=== PATIENT | male | born 2000 | race Caucasian/White ===

== ENCOUNTER 2021-07-06 11:07 | Emergency (ER) | payer OTHER, SELFPAY ==
[2021-07-06 12:06] VITALS: BP 116/79; PULSE 68; RESP 18; TEMP 36.6; O2SAT 98; BMI 26.3
--- NOTE | 2021-07-06 12:21 | ECG_ITS ---
[facility] Test Date: 2021-07-06 Pat Name: Marito Thibodeaux Department: Room: Gender: Male Nurse Behavioral Health Care: : 2000 Requested By: Toñito Holland Order Number: [id number] Naga MD: Jossy Guy M.D. Measurements Intervals [place] Rate: 55 P: 52 NE: 148 QRS: 68 QRSD: 98 T: 49 QT: 398 QTc: 383 Interpretive Statements SINUS BRADYCARDIA EARLY REPOLARIZATION [ST ELEVATION WITH NORMALLY INFLECTED T-WAVE] MODERATE ST DEPRESSION [0.05+ mV ST DEPRESSION] No previous ECG available for comparison Electronically Signed On 07-06-2021 16:04:41 PLEASURE CRAFT SAILOR by Jossy Guy M.D. [email or web address]
--- NOTE | 2021-07-06 12:21 | CT_ITS ---
WS: [id number] CT ABDOMEN AND PELVIS WITH CONTRAST HISTORY: Abdominal pain and hemoptysis. TECHNIQUE: Imaging performed of the abdomen and pelvis with IV contrast. Single phase imaging of the abdomen. Coronal and sagittal reformats are submitted. All CT scans at [facility] use at [address] one of these dose optimization techniques: automated exposure control; mA and/or kV adjustment per patient size (includes targeted exams where dose is matched to clinical indication); or iterative re construction. IV CONTRAST: Omnipaque 300; 95 mL IV. Oral contrast: No DLP: 1710.5 mGy.cm COMPARISON: None available. Lower thorax: Lung bases are clear. Heart is normal size. Very mild thickening of the distal esophagu s. Liver/biliary system: Normal size with no intrahepatic dilatation. Gallbladder: Normal. No gallstones or wall thickening. No pericholecystic fluid. Pancreas: Normal size pancreas and pancreatic duct. No adjacent inflammation. Spleen: Normal size spleen. No mass or infarct. Adrenal glands: Normal. Right kidney: Normal. Left kidney: Moderate cortical thinning and scarring of the upper pole with a dilated calyces. No obs truction or mass identified. Aorta: Normal. No free air. Lymphadenopathy: There are a few small lymph nodes in the RIGHT lower quadrant. No adenopathy. Free fluid: None. GI tract: Very mild fluid distention of small bowel loops in the LEFT abdomen. No obstruction. There is also very mild hyperemia of the proximal small bowel loops. No site of obstruction or mass identif ied. The appendix is normal. Abdominal wall: Unremarkable abdominal wall. No hernia. Pelvis: No free fluid or adenopathy within the pelvis. Bones: Unremarkable. CT/CT abdomen pelvis w con* [id number] IMPRESSION: 1. Mild fluid distention and mild hyperemia of the proximal small bowel loops. No site of obstruction or vascular abnormality identified. Consider gastroente ritis as a possible etiology. There are a few small lymph nodes in the RIGHT lo wer quadrant which can be seen with mesenteric adenitis. 2. Mild thickening of the distal esophagus. Suspect mild esophagitis. Notified Toñito Blanco DO at 07/06/2021 1:11 PM.
--- NOTE | 2021-07-06 12:40 | ED_ITS ---
HPI - Abdominal Pain General: Chief Complaint: Abdominal Pain Stated Complaint: vomiting blood Time Seen by Provider: 07/06/21 12:06 History of Present Illness: HPI narrative: 20-year-old male presents emergency room with left-sided abdominal pain. Reports no episodes of hematemesis prior to arrival. He denies any fever sweats chills. He denies any hematochezia. MD elicited complaint: abdominal pain Pertinent past history: gastrointestinal bleeding Onset (ago): hour(s) Pain Consistency: constant Location: LUQ Severity: severe Quality: stabbing Exacerbating factors: movement Relieving factors: rest Associated Symptoms: Reports anorexia, bloating, GI cramping, dyspepsia, heartburn, hematemesis and poor appetite; Denies belching, change in bowel habits, change in stool character, chills, coffee ground emesis, constipation, diarrhea, dysuria, excessive flatus, fever(s), hematochezia, hematuria, fecal incontinence, loose stools, melena, nausea, syncope and vomiting Review of Systems Const: Denies: fever(s) or chills ENMT: Denies: throat pain, ear or mastoid pain, nasal discharge or nasal congestion Card: Denies: syncope Resp: Denies: dyspnea, productive cough or non-productive cough GI: Reports: hematemesis, heartburn, bloating and GI cramping; Denies: nausea, vomiting, coffee ground emesis, diarrhea, constipation, belching, excessive flatus, fecal incontinence, change in bowel habits, change in stool character, hematochezia or melena : Denies: dysuria or hematuria Skin/Breast: Denies: rash or pruritus PFSH ED PFSH: Medical History (Updated 07/13/21 @ 09:38 by Toñito Blanco DO) Peptic ulcer disease Surgical History (Updated 07/06/21 @ 16:36 by Lul Stoner MD) No significant past surgical history Social History (Updated 07/06/21 @ 16:36 by Lul Stoner MD) Smoking and tobacco status: never smoked Alcohol intake: never Physical Exam Const: COMMON NORMALS: average body habitus, patient oriented x3 and alert GENERAL APPEARANCE: cooperative, comfortable, well kempt and well developed NUTRITIONAL APPEARANCE: obese ORIENTATION/CONSCIOUSNESS: Yes awake, Yes oriented to person and Yes oriented to place HENMT: COMMON NORMALS: normocephalic, atraumatic and EAC's normal HEAD & SCALP: normocephalic and atraumatic EXTERNAL AUDITORY CANAL: EAC's normal Neck/C-Spine: COMMON NORMALS: no meningeal signs Resp: COMMON NORMALS: normal respiratory effort, No retractions, No use of accessory muscles and clear to auscultation bilaterally AUSCULTATION: clear to auscultation bilaterally Cardio: COMMON NORMALS: regular rate and regular rhythm RATE: regular rate RHYTHM: regular rhythm HEART SOUNDS: no murmurs GI: COMMON NORMALS: Normal to inspection, nondistended, normoactive bowel sounds present and No hepatosplenomegaly present PALPATION: Yes Tenderness to palpation present (GI) Details: LLQ and LUQ and Yes No hepatosplenomegaly present : COMMON NORMALS: Yes no CVA tenderness BLADDER/KIDNEY EXAM: Yes no CVA tenderness Back/Pelvis: COMMON NORMALS: no CVA tenderness LUMBAR SPINE/LOWER BACK: Yes normal to inspection Extremity: COMMON NORMALS: no clubbing, cyanosis or edema, no calf tenderness and no pedal edema Neuro: COMMON NORMALS: patient oriented x3 SENSORIUM/ORIENTATION: Yes alert, Yes oriented to person and Yes oriented to place MENINGEAL SIGNS: Yes no meningeal signs Psych: APPEARANCE: Yes well kempt Skin: COMMON NORMALS: no rashes or lesions noted and turgor normal GENERAL SKIN EXAM: no rashes or lesions noted and turgor normal Course Vital Signs: Vital signs: Vital Signs Temperature 97.8 F 07/06/21 12:06 Pulse Rate 70 07/06/21 13:10 Respiratory Rate 16 07/06/21 14:44 Blood Pressure 122/79 07/06/21 13:10 Pulse Oximetry 94 07/06/21 14:44 MDM - Abdominal Pain MDM Narrative: Medical decision making narrative: No further episodes of hematemesis. Consult hospitalist and surgery for EGD.Patient reported significant hematemesis. Discussed with hospitalist and surgery for observation and possible EGD. Lab Data: Labs: Lab Results 07/06/21 07/06/21 07/06/21 12:43 12:43 12:43 WBC 7.3 10^3/uL 10^3/ uL (4.0-10.0) RBC 5.64 10^6/uL H 10 ^6/uL (4.1-5.3) Hgb 17.0 g/dL H g/dL (11.7-16.6) Hct 48.9 % % (42.0-52.0) MCV 86.7 fl fl (80-94) MCH 30.1 pg pg (28.0-34.0) MCHC 34.8 g/dL g/dL (30.0-36.0) RDW 13.1 % % (12.1-15.1) Plt Count 209 10^3/cmm 10^3 /cmm (130-400) MPV 10.8 fL H fL (7.4-10.4) Neut % (Auto) 60.6 % % Lymph % (Auto) 27.8 % % [place] % (Auto) 8.0 % % Eos % (Auto) 2.9 % % Baso % (Auto) 0.4 % % Neut # (Auto) 4.41 10^3/uL 10^3 /uL (1.8-7.7) Lymph # (Auto) 2.0 10^3/uL 10^3/ uL (0.8-4.8) [place] # (Auto) 0.6 10^3/uL 10^3/ uL (0.2-0.9) Eos # (Auto) 0.2 10^3/uL 10^3/ uL (0.0-0.8) Baso # (Auto) 0.0 10^3/uL 10^3/ uL (0.0-0.1) Nucleated RBC % (a uto) 0 % % Nucleated RBCs # 0.0 /100WBC /100W BC PT 13.90 SECONDS SEC ONDS (12.1-14.9) INR 1.04 (0.8-1.2) APTT 28.6 SECONDS SECO NDS (23.9-36.7) Sodium 138 mmol/L mmol/L (136-145) Potassium 4.1 mmol/L mmol/L (3.5-5.1) Chloride 100 mmol/L mmol/L (98-107) Carbon Dioxide 24 mmol/L mmol/L (22-29) Anion Gap 18.1 (5-19) BUN 9 mg/dL mg/dL (6-20) Creatinine 1.0 mg/dL mg/dL (0.7-1.2) GFR Calculation 93.4 mL/min mL/mi n (90-130) Glucose 87 mg/dL mg/dL (65-115) Calculated Osmolal ity 284 mOsm/kg L mOs m/kg (285-295) Calcium 9.2 mg/dL mg/dL (8.5-10.5) Iron TIBC % Saturation Unsat Iron Binding Total Bilirubin 0.7 mg/dL mg/dL (0.15-1.2) AST 14 U/L U/L (0-40) ALT 19 U/L U/L (0-41) Alkaline Phosphata se 89 IU/L IU/L (40-130) Total Protein 7.0 g/dL g/dL (6.6-8.7) Albumin 4.7 g/dL g/dL (3.5-5.2) Globulin 2.3 g/dL g/dL (1.3-4.6) Lipase TSH Ethyl Alcohol Blood Type Rho(D) Type Antibody Screen 07/06/21 07/06/21 07/06/21 12:43 12:43 12:43 WBC RBC Hgb Hct MCV MCH MCHC RDW Plt Count MPV Neut % (Auto) Lymph % (Auto) [place] % (Auto) Eos % (Auto) Baso % (Auto) Neut # (Auto) Lymph # (Auto) [place] # (Auto) Eos # (Auto) Baso # (Auto) Nucleated RBC % (a uto) Nucleated RBCs # PT INR APTT Sodium Potassium Chloride Carbon Dioxide Anion Gap BUN Creatinine GFR Calculation Glucose Calculated Osmolal ity Calcium Iron 123 ug/dL ug/dL (59-158) TIBC 263 mcg/dl mcg/dl % Saturation 46.7 % % (20-50) Unsat Iron Binding 140 ug/dL ug/dL (112-347) Total Bilirubin AST ALT Alkaline Phosphata se Total Protein Albumin Globulin Lipase 16 U/L U/L (13-60) TSH 1.07 uIU/mL uIU/m L (0.27-4.20) Ethyl Alcohol < 10 mg/dL mg/dL (0-10) Blood Type O Positive Rho(D) Type Positive Antibody Screen Negative Discharge Plan Discharge Patient Disposition: Placed in Observation Clinical Impression: Hematemesis, Ileus, Mesenteric lymphadenitis Coding Level of Care Code ED Speech And Hearing Director for Chg Fwd Exam Comprehensive
[2021-07-06 12:47] VITALS: RESP 22
[2021-07-06] MEDS: morphine 4 mg/mL SDV 1 mL IVP ×3 (12:47→13:38)
[2021-07-06] MEDS: pantoprazole 40 mg SDV 80 MG IVP (12:47)
[2021-07-06] MEDS: ondansetron 2 mg/ML SDV 2 mL 4 MG IVP (12:47)
[2021-07-06] MEDS: iohexol 300 mg/mL 100 mL Btl IV (12:51)
[2021-07-06 12:55] LABS: Basophils % 0.4 %; Eosinophils # 0.2 10^3/uL (0.0-0.8); Eosinophils % 2.9 %; Hematocrit 48.9 % (42.0-52.0); Lymphocytes % 27.8 %; Mean Corpuscular HGB Conc 34.8 g/dL (30.0-36.0); Mean Corpuscular Hemoglobin 30.1 pg (28.0-34.0); Mean Corpuscular Volume 86.7 fl (80-94); Mean Platelet Volume 10.8 fL (7.4-10.4); Monocytes # 0.6 10^3/uL (0.2-0.9); Neutrophils # 4.41 10^3/uL (1.8-7.7); Neutrophils % 60.6 %; Nucleated Red Blood Cells % 0 %; Platelet Count 209 10^3/cmm (130-400); Red Blood Count 5.64 10^6/uL (4.1-5.3); Red Cell Distribution Width 13.1 % (12.1-15.1); White Blood Count 7.3 10^3/uL (4.0-10.0)
[2021-07-06 13:05] LABS: INR 1.04 (0.8-1.2)
[2021-07-06 13:06] VITALS: RESP 18; O2SAT 98
[2021-07-06 13:07] LABS: Partial Thromboplastin Time 28.6 SECONDS (23.9-36.7)
[2021-07-06] MEDS: sodium chloride 0.9% 1,000 ML 999 ML IV ×2 (13:07→13:08)
[2021-07-06 13:10] VITALS: BP 122/79; PULSE 70; RESP 16; O2SAT 98
[2021-07-06 13:23] LABS: Alanine Aminotransferase 19 U/L (0-41); Albumin Level 4.7 g/dL (3.5-5.2); Alkaline Phosphatase 89 IU/L (40-130); Anion Gap 18.1 (5-19); Aspartate Amino Transferase 14 U/L (0-40); Blood Urea Nitrogen 9 mg/dL (6-20); Calcium 9.2 mg/dL (8.5-10.5); Carbon Dioxide 24 mmol/L (22-29); Chloride 100 mmol/L (98-107); Globulin 2.3 g/dL (1.3-4.6); Glomerular Filtration Rate 93.4 mL/min (90-130); Glucose 87 mg/dL (65-115); Osmolality Calculated 284 mOsm/kg (285-295); Potassium 4.1 mmol/L (3.5-5.1); Sodium 138 mmol/L (136-145); Total Bilirubin 0.7 mg/dL (0.15-1.2)
[2021-07-06 13:38] VITALS: RESP 16; O2SAT 97
[2021-07-06 14:19] LABS: Lipase 16 U/L (13-60)
[2021-07-06 14:44] VITALS: RESP 16; O2SAT 94
[2021-07-06] MEDS: fentaNYL 50 mcg/mL INJ 2mL IVP (14:44)
--- NOTE | 2021-07-06 16:05 | P.HP_ITS ---
Providers/Chief Complaint Chief Complaint: ABD PAIN, BLOOD IN URINE History of Present Illness Marito Thibodeaux is a 20 year old male Medications/Allergies Home Medications Medication Instructions Recorded Confirmed Last Taken Type ondansetron 4 mg PO DAILY PRN 07/06/21 07/06/21 07/06/21 06:00 History pantoprazole 40 mg PO DAILY 07/06/21 07/06/21 07/06/21 06:00 History Allergies Allergy/AdvReac Type Severity Reaction Status Date / Time acetaminophen [From Tylenol] Allergy Unknown Verified 07/06/21 12:24 Vitals/I&O/Wt Last Vital Signs Temp 97.8 F 07/06/21 12:06 Pulse 70 07/06/21 13:10 Resp 16 07/06/21 14:44 BP 122/79 07/06/21 13:10 Pulse Ox 94 07/06/21 14:44 07/06/21 07/06/21 07/06/21 06:59 14:59 22:59 Intake Total 1999 Balance 1999 Weight last 48 hrs Weight 85.729 kg Data : 07/06/21 12:43 07/06/21 12:43 Other Labs: Laboratory Results WBC 7.3 10^3/uL (4.0-10.0) 07/06/21 12:43 RBC 5.64 10^6/uL (4.1-5.3) H 07/06/21 12:43 Hgb 17.0 g/dL (11.7-16.6) H 07/06/21 12:43 Hct 48.9 % (42.0-52.0) 07/06/21 12:43 MCV 86.7 fl (80-94) 07/06/21 12:43 MCH 30.1 pg (28.0-34.0) 07/06/21 12:43 MCHC 34.8 g/dL (30.0-36.0) 07/06/21 12:43 RDW 13.1 % (12.1-15.1) 07/06/21 12:43 Plt Count 209 10^3/cmm (130-400) 07/06/21 12:43 MPV 10.8 fL (7.4-10.4) H 07/06/21 12:43 Neut % (Auto) 60.6 % 07/06/21 12:43 Lymph % (Auto) 27.8 % 07/06/21 12:43 [place] % (Auto) 8.0 % 07/06/21 12:43 Eos % (Auto) 2.9 % 07/06/21 12:43 Baso % (Auto) 0.4 % 07/06/21 12:43 Neut # (Auto) 4.41 10^3/uL (1.8-7.7) 07/06/21 12:43 Lymph # (Auto) 2.0 10^3/uL (0.8-4.8) 07/06/21 12:43 [place] # (Auto) 0.6 10^3/uL (0.2-0.9) 07/06/21 12:43 Eos # (Auto) 0.2 10^3/uL (0.0-0.8) 07/06/21 12:43 Baso # (Auto) 0.0 10^3/uL (0.0-0.1) 07/06/21 12:43 Nucleated RBC % (auto) 0 % 07/06/21 12:43 Nucleated RBCs # 0.0 /100WBC 07/06/21 12:43 PT 13.90 SECONDS (12.1-14.9) 07/06/21 12:43 INR 1.04 (0.8-1.2) 07/06/21 12:43 APTT 28.6 SECONDS (23.9-36.7) 07/06/21 12:43 Sodium 138 mmol/L (136-145) 07/06/21 12:43 Potassium 4.1 mmol/L (3.5-5.1) 07/06/21 12:43 Chloride 100 mmol/L (98-107) 07/06/21 12:43 Carbon Dioxide 24 mmol/L (22-29) 07/06/21 12:43 Anion Gap 18.1 (5-19) 07/06/21 12:43 BUN 9 mg/dL (6-20) 07/06/21 12:43 Creatinine 1.0 mg/dL (0.7-1.2) 07/06/21 12:43 GFR Calculation 93.4 mL/min (90-130) 07/06/21 12:43 Glucose 87 mg/dL (65-115) 07/06/21 12:43 Calculated Osmolality 284 mOsm/kg (285-295) L 07/06/21 12:43 Calcium 9.2 mg/dL (8.5-10.5) 07/06/21 12:43 Total Bilirubin 0.7 mg/dL (0.15-1.2) 07/06/21 12:43 AST 14 U/L (0-40) 07/06/21 12:43 ALT 19 U/L (0-41) 07/06/21 12:43 Alkaline Phosphatase 89 IU/L (40-130) 07/06/21 12:43 Total Protein 7.0 g/dL (6.6-8.7) 07/06/21 12:43 Albumin 4.7 g/dL (3.5-5.2) 07/06/21 12:43 Globulin 2.3 g/dL (1.3-4.6) 07/06/21 12:43 Lipase 16 U/L (13-60) 07/06/21 12:43 Blood Type O Positive 07/06/21 12:43 Rho(D) Type Positive 07/06/21 12:43 Antibody Screen Negative 07/06/21 12:43 Impressions Abdomen/Pelvis CT 07/06/21 12:21 IMPRESSION: 1. Mild fluid distention and mild hyperemia of the proximal small bowel loops. No site of obstruction or vascular abnormality identified. Consider gastroenteritis as a possible etiology. There are a few small lymph nodes in the RIGHT lower quadrant which can be seen with mesenteric adenitis. 2. Mild thickening of the distal esophagus. Suspect mild esophagitis. Notified Toñito Blanco DO at 07/06/2021 1:11 PM. Coding Level of Care Code Acute Loop Sewer for Chg Ashley
--- NOTE | 2021-07-06 16:30 | PM.CONSULT ---
Providers/Reason For Consult Consulting Physician/Specialty*: General Surgery Lul Stoner MD Reason for Consult*: Hematemesis. Requesting Physician: Toñito Blanco (ER) History of Present Illness History of Present Illness Marito Thibodeaux is a 20 year old male who started vomiting some blood yesterday. He says he continued to vomit some blood today and it was a significant amount. He tells me he has had hematemesis several times a week over the past 3 months. This has been associated with abdominal pain, as well, which she continues to have today. He had an EGD in [place] in February and it revealed 6 ulcers. It sounds like they led him to believe they were going to do a couple follow-ups with him, but he never received any phone calls. He has been on Protonix ever since the EGD until he ran out a week ago. He tells me that he was taking Protonix 3 times a day under the direction of his physician in [place]. He thinks now it may have been increasing his abdominal pain. He more recently has been taking a different medication once a day, but I think it probably is Carafate or something similar. He denies any [id number]-bin-[id number] antacid use. He denies regular NSAID use, significant caffeine intake (he drinks 1 caffeinated beverage a day), alcohol or tobacco product use, etc. He has no family history of upper or lower GI problems. The patient came to the emergency room today and a CAT scan revealed some possible thickening of the distal esophagus but no intra-abdominal problems otherwise. Review of Systems Const: Denies: fever(s) GI: Reports: abdominal pain, nausea, vomiting, hematemesis and heartburn Meds/Allergies Home Medications and Allergies Home Medications Medication Instructions Recorded Confirmed Last Taken Type ondansetron 4 mg PO DAILY PRN 07/06/21 07/06/21 07/06/21 06:00 History pantoprazole 40 mg PO DAILY 07/06/21 07/06/21 07/06/21 06:00 History Allergies Allergy/AdvReac Type Severity Reaction Status Date / Time acetaminophen [From Tylenol] Allergy Unknown Verified 07/06/21 12:24 PFSH Acute PFSH: Medical History (Updated 07/06/21 @ 16:36 by Lul Stoner MD) Peptic ulcer disease Surgical History (Updated 07/06/21 @ 16:36 by Lul Stoner MD) No significant past surgical history Social History (Updated 07/06/21 @ 16:36 by Lul Stoner MD) Smoking and tobacco status: never smoked Alcohol intake: never Substance/Drug Use: never Vitals/I&O/Wt Last Vital Signs Temp 97.8 F 07/06/21 12:06 Pulse 70 07/06/21 13:10 Resp 16 07/06/21 14:44 BP 122/79 07/06/21 13:10 Pulse Ox 94 07/06/21 14:44 07/06/21 07/06/21 07/06/21 06:59 14:59 22:59 Intake Total 1999 Balance 1999 Weight last 48 hrs Weight 189 lb Physical Exam Narrative: EXAM NARRATIVE: The patient was encountered in his room in the emergency department in the presence of Dr. Santillan from the hospitalist service. The patient does not appear to be in any acute distress. The abdomen reveals significant tenderness, however, in the epigastrium and the left lower quadrant (the patient says this is not new). No masses are palpated. Data Imaging^: CT Abd/Pel: Radiologist's impression: CT abdomen/pelvis 07/06/2021 IMPRESSION: 1. Mild fluid distention and mild hyperemia of the proximal small bowel loops. No site of obstruction or vascular abnormality identified. Consider gastroenteritis as a possible etiology. There are a few small lymph nodes in the RIGHT lower quadrant which can be seen with mesenteric adenitis. 2. Mild thickening of the distal esophagus. Suspect mild esophagitis. A&P Assessment and plan (1) Hematemesis: The patient was found to have several ulcerations in his stomach several months ago when he had endoscopy by Dr. Russell of gastroenterology in [place]. It sounds like follow-up may have fallen through, but the patient says he has been taking Protonix daily ever since then and is still having issues. I have to assume that he was checked for Helicobacter at that time. I told him that I could repeat an EGD at this time but I am not sure it is going to tell us anything new. He would prefer to get set up with a clip loading machine adjuster in [place] and indicated they would work towards that goal through his primary care physician. He indicated he was interested in trying to go home today, but was instructed to return if he has worsening or new problems. Status: Acute Consult Attestations Medical Necessity Statement: See hospitalist service's notation. At the end of our interview the patient indicated that he was wanting to go home today. Coding Level of Care Code Acute Towel Sorter for Elaine Ramirez Diagnoses Hematemesis K92.0
[2021-07-06 16:39] LABS: Alcohol Level < 10 mg/dL (0-10); Iron 123 ug/dL (59-158); Percent Saturation 46.7 % (20-50); Thyroid Stimulating Hormone 1.07 uIU/mL (0.27-4.20); Total Iron Binding Capacity 263 mcg/dl; Unsaturated Iron Binding 140 ug/dL (112-347)
--- NOTE | 2021-07-06 16:46 | P.CONIM_ITS ---
Providers/Reason For Consult Consulting Physician/Specialty*: Internal medicine Reason for Consult*: Abdominal pain, possible GI bleed, possible admission Requesting Physician: Dr. Calle Attending Physician: Dr. Barclay/Dr. Stoner History of Present Illness History of Present Illness Marito Thibodeaux is a 20 year old male with past medical history of peptic ulcer disease, hematemesis which has been going on for last 3 months for which he follows up with gastroenterology for next year with EGD next 3 months which he was found to have 6 ulcers out of which one was cauterized. Patient recently moved to [place]. He usually has hematemesis once every 3 weeks. He has been having symptoms again since yesterday evening. Today while he was at work he started having hematemesis again along with dizziness and one episode of blacking out so he presented to the ER. Patient has been having acute abdominal pain ongoing for last 3 months. As per him he was diagnosed of peptic ulcer disease and placed on Protonix 3 times a day along with the medication with possible bismuth once a day. Patient today seen in the ER with Dr. Stoner at bedside. Patient states last episode of vomiting was around 2 hours ago. Denies any nausea, vomiting, dizziness currently. Current vitals are pulse of 70, blood pressure of 122/80, saturating well on room air. He states his abdominal pain is the same which has been going on for last 3 months. He is not aware of diagnosis of H. pylori. He denies any use of chronic marijuana, smoking, alcohol use, states he is usually on full liquid diet. Take 1 caffeinated drink a day and Mountain Dew. Denies any recreational drugs. Blood work in the ER showed a white of 7.3, hemoglobin of 17, INR 1.04, sodium 138, creatinine of 1, iron 123, TIBC of 263, AST/ALT of 14/19,-phosphatase of 89, TSH of 1.07, alcohol level of less than [address] abdomen pelvis done as below. Review of Systems General: Reports: 10 or more systems reviewed and unremarkable except in HPI and below Const: Denies: fever(s), chills, body aches, change in appetite, change in weight, malaise, night sweats, diaphoresis, change in sleep pattern, daytime sleepiness or snoring Eyes: Denies: change in vision, blurry vision, photophobia, eye discomfort or eye discharge ENMT: Denies: throat pain, enlarged tonsils, hoarseness, mouth pain, oral sores, dry mouth, tinnitus, nasal congestion or post nasal drip Card: Denies: chest pain, palpitations, irregular heart rhythm, edema, swelling of feet/ankles, lightheadedness, syncope, pre-syncope, dyspnea on exertion, orthopnea, leg pain with exertion or acrocyanosis Resp: Denies: dyspnea, productive cough, non-productive cough, wheezing, stridor, pain on inspiration, change in phlegm color, hemoptysis or chest congestion GI: Denies: abdominal pain, nausea, vomiting, hematemesis, coffee ground emesis, dysphagia, heartburn, diarrhea, constipation, bloating, GI cramping, change in bowel habits, pain on defecation, hematochezia or melena : Denies: flank pain, difficulty urinating, dysuria, urinary frequency, urinary urgency, urinary hesitancy, urinary dribbling, difficulty starting urination, change in urine stream, nocturia or hematuria Musc: Denies: neck pain, back pain, extremity pain, joint pain, joint swelling, joint redness, joint stiffness or limited range of motion Neuro: Denies: headache(s), numbness in extremities, weakness in extremities, sensory changes, lack of coordination, difficulty walking, frequent falls, dizziness, vertigo, confusion, Slurred speech present, difficulty communicating thoughts or seizure-like activity Psych: Denies: anxiety, depression, mood swings, panic attacks, hopelessness or irritability Endo: Denies: polyuria, polydipsia, tired all the time, cold intolerance, excessive sweating, flushing or heat intolerance Willy/Lymph: Denies: easy bruising or easy bleeding All/Imm: Denies: tongue swelling, facial swelling or acute wheezing Meds/Allergies Home Medications and Allergies Home Medications Medication Instructions Recorded Confirmed Last Taken Type ondansetron 4 mg PO DAILY PRN 07/06/21 07/06/21 07/06/21 06:00 History pantoprazole 40 mg PO DAILY 07/06/21 07/06/21 07/06/21 06:00 History Allergies Allergy/AdvReac Type Severity Reaction Status Date / Time acetaminophen [From Tylenol] Allergy Unknown Verified 07/06/21 12:24 PFSH Acute PFSH: Medical History (Updated 07/06/21 @ 16:51 by Prosper Barclay MD) Peptic ulcer disease Surgical History (Updated 07/06/21 @ 16:36 by Lul Stoner MD) No significant past surgical history Social History (Updated 07/06/21 @ 16:36 by Lul Stoner MD) Smoking and tobacco status: never smoked Alcohol intake: never Substance/Drug Use: never Vitals/I&O/Wt Last Vital Signs Temp 97.8 F 07/06/21 12:06 Pulse 70 07/06/21 13:10 Resp 16 07/06/21 14:44 BP 122/79 07/06/21 13:10 Pulse Ox 94 07/06/21 14:44 07/06/21 07/06/21 07/06/21 06:59 14:59 22:59 Intake Total 1999 Balance 1999 Weight last 48 hrs Weight 85.729 kg Physical Exam Narrative: EXAM NARRATIVE: EXAM NARRATIVE: General: No acute distress, AO x3, on room air HEENT: PERRLA, pupils bilaterally equal and reactive Chest: No respiratory breath sounds bilaterally, good equal air entry bilaterally CVS: S1-S2 regular, no murmurs, no tachycardia, no gallops, no rubs Abdomen: Soft, mild generalized tenderness present all over the abdomen, no organomegaly, bowel sounds present, sent Neuro: No focal deficits, no facial deformity, AO x3, power 5/5 in all limbs Data Labs: Other Labs: Laboratory Results WBC 7.3 10^3/uL (4.0- 10.0) 07/06/21 12:43 RBC 5.64 10^6/uL (4.1 -5.3) H 07/06/21 12:43 Hgb 17.0 g/dL (11.7-1 6.6) H 07/06/21 12:43 Hct 48.9 % (42.0-52.0 ) 07/06/21 12:43 MCV 86.7 fl (80-94) 07/06/21 12:43 MCH 30.1 pg (28.0-34. 0) 07/06/21 12:43 MCHC 34.8 g/dL (30.0-3 6.0) 07/06/21 12:43 RDW 13.1 % (12.1-15.1 ) 07/06/21 12:43 Plt Count 209 10^3/cmm (130 -400) 07/06/21 12:43 MPV 10.8 fL (7.4-10.4 ) H 07/06/21 12:43 Neut % (Auto) 60.6 % 07/06/21 12:43 Lymph % (Auto) 27.8 % 07/06/21 12:43 Daggett % (Auto) 8.0 % 07/06/21 12:43 Eos % (Auto) 2.9 % 07/06/21 12:43 Baso % (Auto) 0.4 % 07/06/21 12:43 Neut # (Auto) 4.41 10^3/uL (1.8 -7.7) 07/06/21 12:43 Lymph # (Auto) 2.0 10^3/uL (0.8- 4.8) 07/06/21 12:43 Daggett # (Auto) 0.6 10^3/uL (0.2- 0.9) 07/06/21 12:43 Eos # (Auto) 0.2 10^3/uL (0.0- 0.8) 07/06/21 12:43 Baso # (Auto) 0.0 10^3/uL (0.0- 0.1) 07/06/21 12:43 Nucleated RBC % (a uto) 0 % 07/06/21 12:43 Nucleated RBCs # 0.0 /100WBC 07/06/21 12:43 PT 13.90 SECONDS (12 .1-14.9) 07/06/21 12:43 INR 1.04 (0.8-1.2) 07/06/21 12:43 APTT 28.6 SECONDS (23. 9-36.7) 07/06/21 12:43 Sodium 138 mmol/L (136-1 45) 07/06/21 12:43 Potassium 4.1 mmol/L (3.5-5 .1) 07/06/21 12:43 Chloride 100 mmol/L (98-10 7) 07/06/21 12:43 Carbon Dioxide 24 mmol/L (22-29) 07/06/21 12:43 Anion Gap 18.1 (5-19) 07/06/21 12:43 BUN 9 mg/dL (6-20) 07/06/21 12:43 Creatinine 1.0 mg/dL (0.7-1. 2) 07/06/21 12:43 GFR Calculation 93.4 mL/min (90-1 30) 07/06/21 12:43 Glucose 87 mg/dL (65-115) 07/06/21 12:43 Calculated Osmolal ity 284 mOsm/kg (285- 295) L 07/06/21 12:43 Calcium 9.2 mg/dL (8.5-10 .5) 07/06/21 12:43 Iron 123 ug/dL (59-158 ) 07/06/21 12:43 TIBC 263 mcg/dl 07/06/21 12:43 % Saturation 46.7 % (20-50) 07/06/21 12:43 Unsat Iron Binding 140 ug/dL (112-34 7) 07/06/21 12:43 Total Bilirubin 0.7 mg/dL (0.15-1 .2) 07/06/21 12:43 AST 14 U/L (0-40) 07/06/21 12:43 ALT 19 U/L (0-41) 07/06/21 12:43 Alkaline Phosphata se 89 IU/L (40-130) 07/06/21 12:43 Total Protein 7.0 g/dL (6.6-8.7 ) 07/06/21 12:43 Albumin 4.7 g/dL (3.5-5.2 ) 07/06/21 12:43 Globulin 2.3 g/dL (1.3-4.6 ) 07/06/21 12:43 Lipase 16 U/L (13-60) 07/06/21 12:43 TSH 1.07 uIU/mL (0.27 -4.20) 07/06/21 12:43 Ethyl Alcohol < 10 mg/dL (0-10) 07/06/21 12:43 Blood Type O Positive 07/06/21 12:43 Rho(D) Type Positive 07/06/21 12:43 Antibody Screen Negative 07/06/21 12:43 Impressions Abdomen/Pelvis CT 07/06/21 12:21 IMPRESSION: 1. Mild fluid distention and mild hyperemia of the proximal small bowel loops. No site of obstruction or vascular abnormality identified. Consider gastroenteritis as a possible etiology. There are a few small lymph nodes in the RIGHT lower quadrant which can be seen with mesenteric adenitis. 2. Mild thickening of the distal esophagus. Suspect mild esophagitis. Notified Toñito Blanco DO at 07/06/2021 1:11 PM. A&P Assessment and plan (1) Hematemesis: Status: Acute (2) Peptic ulcer disease: Status: Acute Additional A&P Information Case discussed with patient and Dr. Stoner at bedside. Repeat EGD was discussed with the patient along with need of follow-up with [employer] consultant in [place] given young age, recurrent symptoms even though he is on max treatment. Patient is interested in trying to go home. Case discussed with Dr. He is agreeable. Patient requesting refills for Protonix. He last took Protonix a week ago. Patient denies any dizziness currently. Orthostatic negative. We will plan to discharge patient home from ER. We discussed the need of follow-up with [employer] consultant as soon as possible for further work-up and possibly repeat EGD as an outpatient to rule out gastrinoma. We also discussed in detail for presentation back to the ER if he has worsening symptoms, episode of dizziness, recurrent hematemesis or unable to take oral intake. Consult Attestations Medical Necessity Statement: Patient can be discharged home I discussed in detail with Dr. Stoner and patient and patient's family at bedside. Time Spent in Patient Care: Greater than 35 minutes (>than 50% of time spent in counselling and/or direct pt care on unit) . Coding Level of Care Code Acute Direct Customer Service Representative for [facility] Diagnoses Hematemesis K92.0 Peptic ulcer disease K27.9
== END 2021-07-06 17:28 | disposition still patient (30) ==
PROVIDERS: Student in an Organized Health Care Education/Training Program; Emergency Provider Family Medicine
DX: K92.0 Hematemesis (principal); I88.0 Nonspecific mesenteric lymphadenitis
CPT/HCPCS: 74177; 80053; 80307; 83540; 83550; 83690; 84443; 85025; 85610; 85730; 86850; 86900; 93005; 96361; 96374; 96375; 96376; 99284; C9113; J2270; J2405; J3010; J7030; Q9967

== ENCOUNTER 2022-01-01 17:12 | Emergency (ER) | payer OTHER, SELFPAY ==
[2022-01-01] VITALS (14 sets, daily range): BP systolic 116–154; BP diastolic 75–117; PULSE 60–83; RESP 12–18; O2SAT 91–99; BMI 26.3
--- NOTE | 2022-01-01 17:15 | XRR_ITS ---
PROCEDURE INFORMATION: Exam: XR Chest Exam date and time: 01/01/2022 5:57 PM Age: 21 years old Clinical indication: Other: Hemoptysis; Additional info: Hemoptysosis TECHNIQUE: Imaging protocol: XR of the chest. Views: 1 view. COMPARISON: CT abdomen pelvis w con* [id number] 07/06/2021 12:46 PM FINDINGS: Lungs: Unremarkable. No consolidation. Pleural spaces: Unremarkable. No pleural effusion. No pneumothorax. Heart/Mediastinum: Unremarkable. No cardiomegaly. Bones/joints: Unremarkable. XR/XR chest 1V portable [id number] IMPRESSION: No acute findings.
--- NOTE | 2022-01-01 17:49 | CTR_ITS ---
PROCEDURE INFORMATION: Exam: CT Abdomen And Pelvis Without Contrast Exam date and time: 01/01/2022 6:22 PM Age: 21 years old Clinical indication: Pain and condition or disease; Spleen condition; Other: Duodenal ulcers; Abdominal pain; Additional info: Abdominal pain- vomiting blood TECHNIQUE: Imaging protocol: Computed tomography of the abdomen and pelvis without contrast. Radiation optimization: All CT scans at this facility use at least one of these dose optimization techniques: automated exposure control; mA and/or kV adjustment per patient size (includes targeted exams where dose is matched to clinical indication); or iterative reconstruction. COMPARISON: CT abdomen pelvis w con* [id number] 07/06/2021 12:46 PM RADIATION DOSE METRICS: Total DLP (mGy-cm): 1938.17 FINDINGS: Diaphragm: Small hiatal hernia. Liver: Normal. No mass. Gallbladder and bile ducts: Normal. No calcified stones. No ductal dilation. Pancreas: Normal. No ductal dilation. Spleen: Normal. No splenomegaly. Adrenal glands: Normal. No mass. Kidneys and ureters: Normal. No hydronephrosis. Stomach and bowel: Unremarkable. No obstruction. No mucosal thickening. Appendix: No evidence of appendicitis. Intraperitoneal space: Unremarkable. No free air. No significant fluid collection. Vasculature: Unremarkable. No abdominal aortic aneurysm. Lymph nodes: Unremarkable. No enlarged lymph nodes. Urinary bladder: Unremarkable as visualized. Reproductive: Unremarkable as visualized. Bones/joints: Unremarkable. No acute fracture. Soft tissues: Unremarkable. CT/CT abdomen pelvis wo con [id number] IMPRESSION: Negative for acute inflammatory process in the abdomen or pelvis
--- NOTE | 2022-01-01 17:49 | ECG_ITS ---
[facility] Test Date: 2022-01-01 Pat Name: Marito Thibodeaux Department: Room: Gender: Male Animal Husbandry Technician: : 2000 Requested By: Toñito Holland Order Number: [id number] Naga MD: Aj Ha M.D. Measurements Intervals Jarrell Rate: 76 P: 43 NM: 141 QRS: 49 QRSD: 97 T: 17 QT: 374 QTc: 422 Interpretive Statements SINUS RHYTHM WITH SINUS ARRHYTHMIA Compared to ECG 07/06/2021 13:02:49 Sinus bradycardia no longer present Early repolarization no longer present ST (T wave) deviation no longer present Electronically Signed On 01-01-2022 21:57:08 CDT by Aj Ha M.D. [id number]
[2022-01-01 17:50] LABS: Basophils # 0.1 10^3/uL (0.0-0.1); Basophils % 0.5 %; Eosinophils # 0.6 10^3/uL (0.0-0.8); Eosinophils % 5.8 %; Hematocrit 47.7 % (42.0-52.0); Hemoglobin 17.1 g/dL (11.7-16.6); Lymphocytes # 2.9 10^3/uL (0.8-4.8); Lymphocytes % 30.1 %; Mean Corpuscular HGB Conc 35.8 g/dL (30.0-36.0); Mean Corpuscular Hemoglobin 30.3 pg (28.0-34.0); Mean Corpuscular Volume 84.6 fl (80-94); Mean Platelet Volume 11.2 fL (7.4-10.4); Monocytes # 0.8 10^3/uL (0.2-0.9); Monocytes % 8.5 %; Neutrophils # 5.24 10^3/uL (1.8-7.7); Neutrophils % 54.8 %; Nucleated Red Blood Cells % 0 %; Platelet Count 223 10^3/cmm (130-400); Red Blood Count 5.64 10^6/uL (4.1-5.3); Red Cell Distribution Width 12.5 % (12.1-15.1); White Blood Count 9.6 10^3/uL (4.0-10.0)
--- NOTE | 2022-01-01 17:50 | ED_ITS ---
Documented by User: Toñito Blanco DO 01/01/22 17:59 HPI - Abdominal Pain General: Chief Complaint: Nausea/Vomiting/Diarrhea Stated Complaint: Throwing up blood Time Seen by Provider: 01/01/22 17:35 Source: patient Mode of arrival: ambulatory Limitations: no limitations History of Present Illness: 21-year-old male presents emergency room with acute periumbilical abdominal pain that began this afternoon he said some moderate hematemesis. He has had several EGDs in the past and has had bleeding ulcers in the past has not required any surgical repair. He is currently taking Protonix for which she has been taking regularly has not missed any doses. No dysuria urgency or frequency no chest pain or shortness of breath. He is not on any anticoagulants no other medications. MD elicited complaint: abdominal pain Pertinent past history: other (Gastroesophageal reflux) Onset (ago): hour(s) Pain Consistency: constant Location: Periumbilical Severity: severe Quality: cramping Exacerbating factors: eating and vomiting Relieving factors: nothing Associated Symptoms: Reports bloating, GI cramping, dyspepsia, hematemesis, nausea and vomiting; Denies anorexia, belching, change in bowel habits, change in stool character, chills, coffee ground emesis, constipation, diarrhea, dysuria, excessive flatus, fever(s), heartburn, hematochezia, hematuria, fecal incontinence, loose stools, melena, poor appetite and syncope Review of Systems Const: Denies: fever(s) or chills ENMT: Denies: throat pain, ear or mastoid pain, nasal discharge or nasal congestion Card: Denies: syncope Resp: Denies: dyspnea, productive cough or non-productive cough GI: Reports: nausea, vomiting, hematemesis, bloating and GI cramping; Denies: coffee ground emesis, heartburn, diarrhea, constipation, belching, excessive flatus, fecal incontinence, change in bowel habits, change in stool character, hematochezia or melena : Denies: dysuria or hematuria Skin/Breast: Denies: rash or pruritus PFS ED PFSH: Medical History Peptic ulcer disease Surgical History No significant past surgical history Social History Smoking and tobacco status: never smoked Alcohol intake: never Physical Exam Const: COMMON NORMALS: no acute distress GENERAL APPEARANCE: cooperative and comfortable ORIENTATION/CONSCIOUSNESS: Yes awake, Yes oriented to person, Yes oriented to place and Yes oriented to time HENMT: COMMON NORMALS: normocephalic, atraumatic and hearing grossly normal bilaterally HEAD & SCALP: normocephalic and atraumatic Neck/C-Spine: COMMON NORMALS: no JVD Resp: COMMON NORMALS: normal respiratory effort, No retractions, No use of accessory muscles and clear to auscultation bilaterally AUSCULTATION: clear to auscultation bilaterally Cardio: COMMON NORMALS: no JVD, regular rate, regular rhythm and No murmurs present (Cardio) RATE: regular rate RHYTHM: regular rhythm GI: COMMON NORMALS: No hepatosplenomegaly present AUSCULTATION: Yes normoactive bowel sounds PALPATION: Yes Tenderness to palpation present (GI), Yes Guarding due to palpation present (GI) and Yes No hepatosplenomegaly present Extremity: COMMON NORMALS: normal to inspection, capillary refill normal, no clubbing, cyanosis or edema, no calf tenderness and no pedal edema Neuro: SENSORIUM/ORIENTATION: Yes oriented to person, Yes oriented to place and Yes oriented to time Skin: COMMON NORMALS: no rashes or lesions noted GENERAL SKIN EXAM: no rashes or lesions noted Course Vital Signs: Vital signs: Vital Signs Pulse Rate 83 01/02/22 01:29 Respiratory Rate 18 01/02/22 01:29 Blood Pressure 133/94 01/02/22 01:29 Pulse Oximetry 97 01/02/22 01:29 MDM - Abdominal Pain Medical Decision Making Acute abdomen on exam. Antiemetics pain medications given as well as PPI. CT ordered Care signed out to Dr. Parks change of shift. See final notes for diagnosis and disposition. Lab Data : 01/01/22 17:40 01/01/22 17:40 Labs/Radiology: Radiology Impressions Chest X-Ray 01/01/22 17:15 IMPRESSION: No acute findings. Abdomen/Pelvis CT 01/01/22 17:49 IMPRESSION: Negative for acute inflammatory process in the abdomen or pelvis Chest/Abdomen/Pelvis CT 01/01/22 22:50 IMPRESSION: No acute findings. IMPRESSION: 1. Very minimal edema may be present inferior to the pancreas, perhaps reflecting a mild pancreatitis in the appropriate clinical setting. 2. Small to moderate hiatal hernia. Laboratory Results WBC 9.6 10^3/uL (4.0-10.0) 01/01/22 17:40 RBC 5.64 10^6/uL (4.1-5.3) H 01/01/22 17:40 Hgb 17.1 g/dL (11.7-16.6) H 01/01/22 17:40 Hct 47.7 % (42.0-52.0) 01/01/22 17:40 MCV 84.6 fl (80-94) 01/01/22 17:40 MCH 30.3 pg (28.0-34.0) 01/01/22 17:40 MCHC 35.8 g/dL (30.0-36.0) 01/01/22 17:40 RDW 12.5 % (12.1-15.1) 01/01/22 17:40 Plt Count 223 10^3/cmm (130-400) 01/01/22 17:40 MPV 11.2 fL (7.4-10.4) H 01/01/22 17:40 Neut % (Auto) 54.8 % 01/01/22 17:40 Lymph % (Auto) 30.1 % 01/01/22 17:40 [place] % (Auto) 8.5 % 01/01/22 17:40 Eos % (Auto) 5.8 % 01/01/22 17:40 Baso % (Auto) 0.5 % 01/01/22 17:40 Neut # (Auto) 5.24 10^3/uL (1.8-7.7) 01/01/22 17:40 Lymph # (Auto) 2.9 10^3/uL (0.8-4.8) 01/01/22 17:40 [place] # (Auto) 0.8 10^3/uL (0.2-0.9) 01/01/22 17:40 Eos # (Auto) 0.6 10^3/uL (0.0-0.8) 01/01/22 17:40 Baso # (Auto) 0.1 10^3/uL (0.0-0.1) 01/01/22 17:40 Nucleated RBC % (auto) 0 % 01/01/22 17:40 Nucleated RBCs # 0.0 /100WBC 01/01/22 17:40 PT 13.80 SECONDS (12.1-14.9) 01/01/22 19:35 INR 1.03 (0.8-1.2) 01/01/22 19:35 D-Dimer <= 0.27 ug/mIFEU (0-0.59) 01/01/22 19:35 Sodium 138 mmol/L (136-145) 01/01/22 17:40 Potassium 3.9 mmol/L (3.5-5.1) 01/01/22 17:40 Chloride 97 mmol/L (98-107) L 01/01/22 17:40 Carbon Dioxide 29 mmol/L (22-29) 01/01/22 17:40 Anion Gap 15.9 (5-19) 01/01/22 17:40 BUN 17 mg/dL (6-20) 01/01/22 17:40 Creatinine 1.0 mg/dL (0.7-1.2) 01/01/22 17:40 GFR Calculation 92.6 mL/min (90-130) 01/01/22 17:40 Glucose 89 mg/dL (65-115) 01/01/22 17:40 Calculated Osmolality 287 mOsm/kg (285-295) 01/01/22 17:40 Lactic Acid 0.7 mmol/L (0.5-2.2) 01/01/22 22:06 Calcium 10.0 mg/dL (8.5-10.5) 01/01/22 17:40 Lipase 19 U/L (13-60) 01/01/22 17:40 Urine Color Yellow (Yellow) 01/01/22 21:00 Urine Appearance Clear (CLEAR) 01/01/22 21:00 Urine pH 8 (5-7) H 01/01/22 21:00 Ur Specific [place] 1.010 (1.005-1.030) 01/01/22 21:00 Urine Protein Neg (Negative) 01/01/22 21:00 Urine Glucose (UA) Norm (Normal) 01/01/22 21:00 Urine Ketones Negative (Negative) 01/01/22 21:00 Urine Blood Neg (Negative) 01/01/22 21:00 Urine Nitrate Negative (Negative) 01/01/22 21:00 Urine Bilirubin Neg (Negative) 01/01/22 21:00 Prot Sulfosalicylic Acd Negative (Negative) 01/01/22 21:00 Urine Urobilinogen Norm mg/dL (Negative) 01/01/22 21:00 Ur Leukocyte Esterase Negative (Negative) 01/01/22 21:00 Discharge Plan Discharge Patient Disposition: Home Clinical Impression: Abdominal pain, Hematemesis, Dehydration, Pancreatitis Condition: Stable Prescriptions: New ondansetron 4 mg tablet,disintegrating 4 mg PO Q8H PRN (Reason: nausea and vomiting) Qty: 15 0RF oxycodone 5 mg tablet 5 mg PO Q4H PRN (Reason: pain) Qty: 14 0RF No Action pantoprazole 40 mg tablet,delayed release (DR/EC) 40 mg PO BIDWMEAL 30 Days Qty: 60 0RF Discharge Orders: Discharge ED (Routine); Ordered 01/02/22 Ordered By: Jensen Henderson Discharge Diet: Clear Liquid Discharge Activity: Increase activity as tolerated Patient Instructions: Pancreatitis (ED), Abdominal Pain (ED), Hematemesis (ED), Opioid Safety Activity Restrictions/Additional Instructions: Thank you for visiting the emergency department. You were seen and evaluated for abdominal pain and throwing up blood. The exact cause of your symptoms unclear. You do perhaps mild pancreatitis and this is likely exacerbation of your underlying peptic ulcer disease. Please follow-up with gastroenterology and your primary care provider. I will message case management for follow-up with GI. You will be given a prescription for nausea medication and pain medication. I recommend clear liquids for the next 2 days followed by slow introduction of nonfatty foods. Return to the emergency department for uncontrolled pain, inability tolerate p.o. intake, lightheadedness, dizziness, recurrent episodes of blood in vomit, or anything else that you are concerned about a feel needs emergency department evaluation. Sign Out Sign Out Data: Patient Sign Out occurred on 01/01/22 at 18:04. Patient's care was discussed, and care was transferred from to Jensen Henderson MD. Coding Level of Care Code ED Quote Clerk for Chg Fwd Exam Comprehensive Documented by User: Jensen Henderson MD 01/06/22 03:36 HPI - Abdominal Pain General: Chief Complaint: Nausea/Vomiting/Diarrhea Stated Complaint: Throwing up blood Time Seen by Provider: 01/01/22 17:35 PFS ED PFSH: Medical History Peptic ulcer disease Surgical History No significant past surgical history Social History Smoking and tobacco status: never smoked Alcohol intake: never Course Vital Signs: Vital signs: Vital Signs Pulse Rate 83 01/02/22 01:29 Respiratory Rate 18 01/02/22 01:29 Blood Pressure 133/94 01/02/22 01:29 Pulse Oximetry 97 01/02/22 01:29 MDM - Abdominal Pain Medical Decision Making Acute abdomen on exam. Antiemetics pain medications given as well as PPI. CT ordered Care signed out to Dr. Parks change of shift. See final notes for diagnosis and disposition. Patient care handoff received from Dr. Blanco pending completion of ED evaluation and reassessment. Laboratory studies notable for no leukocytosis, hemoglobin similar to baseline. D-dimer negative and INR normal. Metabolic panel without acute derangement, BUN normal. Urinalysis not concerning for urinary tract infection. Initial CT scan without acute pathology to explain patient's symptoms. Despite multiple rounds of medications including escalating opiate use the patient continued to have rather severe pain that was almost immediate return. Therefore additional imaging felt to be warranted. CT study notable for perhaps mild pancreatitis which she conjugation with physical exam findings is a reasonable explanation for patient's abdominal pain. Pain was able to be controlled and nausea controlled. Patient tolerated p.o. intake. He was offered admission given the difficulty controlling pain in the emergency department however he prefers trial at home with strict return precautions. I discussed prescriptions, follow-up plan, return precautions. Patient verbalized understanding and felt safe for discharge. Jensen Henderson MD Emergency Medicine Lab Data : 01/01/22 17:40 01/01/22 17:40 Labs/Radiology: Radiology Impressions Chest X-Ray 01/01/22 17:15 IMPRESSION: No acute findings. Abdomen/Pelvis CT 01/01/22 17:49 IMPRESSION: Negative for acute inflammatory process in the abdomen or pelvis Chest/Abdomen/Pelvis CT 01/01/22 22:50 IMPRESSION: No acute findings. IMPRESSION: 1. Very minimal edema may be present inferior to the pancreas, perhaps reflecting a mild pancreatitis in the appropriate clinical setting. 2. Small to moderate hiatal hernia. Laboratory Results WBC 9.6 10^3/uL (4.0-10.0) 01/01/22 17:40 RBC 5.64 10^6/uL (4.1-5.3) H 01/01/22 17:40 Hgb 17.1 g/dL (11.7-16.6) H 01/01/22 17:40 Hct 47.7 % (42.0-52.0) 01/01/22 17:40 MCV 84.6 fl (80-94) 01/01/22 17:40 MCH 30.3 pg (28.0-34.0) 01/01/22 17:40 MCHC 35.8 g/dL (30.0-36.0) 01/01/22 17:40 RDW 12.5 % (12.1-15.1) 01/01/22 17:40 Plt Count 223 10^3/cmm (130-400) 01/01/22 17:40 MPV 11.2 fL (7.4-10.4) H 01/01/22 17:40 Neut % (Auto) 54.8 % 01/01/22 17:40 Lymph % (Auto) 30.1 % 01/01/22 17:40 [place] % (Auto) 8.5 % 01/01/22 17:40 Eos % (Auto) 5.8 % 01/01/22 17:40 Baso % (Auto) 0.5 % 01/01/22 17:40 Neut # (Auto) 5.24 10^3/uL (1.8-7.7) 01/01/22 17:40 Lymph # (Auto) 2.9 10^3/uL (0.8-4.8) 01/01/22 17:40 [place] # (Auto) 0.8 10^3/uL (0.2-0.9) 01/01/22 17:40 Eos # (Auto) 0.6 10^3/uL (0.0-0.8) 01/01/22 17:40 Baso # (Auto) 0.1 10^3/uL (0.0-0.1) 01/01/22 17:40 Nucleated RBC % (auto) 0 % 01/01/22 17:40 Nucleated RBCs # 0.0 /100WBC 01/01/22 17:40 PT 13.80 SECONDS (12.1-14.9) 01/01/22 19:35 INR 1.03 (0.8-1.2) 01/01/22 19:35 D-Dimer <= 0.27 ug/mIFEU (0-0.59) 01/01/22 19:35 Sodium 138 mmol/L (136-145) 01/01/22 17:40 Potassium 3.9 mmol/L (3.5-5.1) 01/01/22 17:40 Chloride 97 mmol/L (98-107) L 01/01/22 17:40 Carbon Dioxide 29 mmol/L (22-29) 01/01/22 17:40 Anion Gap 15.9 (5-19) 01/01/22 17:40 BUN 17 mg/dL (6-20) 01/01/22 17:40 Creatinine 1.0 mg/dL (0.7-1.2) 01/01/22 17:40 GFR Calculation 92.6 mL/min (90-130) 01/01/22 17:40 Glucose 89 mg/dL (65-115) 01/01/22 17:40 Calculated Osmolality 287 mOsm/kg (285-295) 01/01/22 17:40 Lactic Acid 0.7 mmol/L (0.5-2.2) 01/01/22 22:06 Calcium 10.0 mg/dL (8.5-10.5) 01/01/22 17:40 Lipase 19 U/L (13-60) 01/01/22 17:40 Urine Color Yellow (Yellow) 01/01/22 21:00 Urine Appearance Clear (CLEAR) 01/01/22 21:00 Urine pH 8 (5-7) H 01/01/22 21:00 Ur Specific [place] 1.010 (1.005-1.030) 01/01/22 21:00 Urine Protein Neg (Negative) 01/01/22 21:00 Urine Glucose (UA) Norm (Normal) 01/01/22 21:00 Urine Ketones Negative (Negative) 01/01/22 21:00 Urine Blood Neg (Negative) 01/01/22 21:00 Urine Nitrate Negative (Negative) 01/01/22 21:00 Urine Bilirubin Neg (Negative) 01/01/22 21:00 Prot Sulfosalicylic Acd Negative (Negative) 01/01/22 21:00 Urine Urobilinogen Norm mg/dL (Negative) 01/01/22 21:00 Ur Leukocyte Esterase Negative (Negative) 01/01/22 21:00 Discharge Plan Discharge Patient Disposition: Home Clinical Impression: Abdominal pain, Hematemesis, Dehydration, Pancreatitis Condition: Stable Prescriptions: New ondansetron 4 mg tablet,disintegrating 4 mg PO Q8H PRN (Reason: nausea and vomiting) Qty: 15 0RF oxycodone 5 mg tablet 5 mg PO Q4H PRN (Reason: pain) Qty: 14 0RF No Action pantoprazole 40 mg tablet,delayed release (DR/EC) 40 mg PO BIDWMEAL 30 Days Qty: 60 0RF Discharge Orders: Discharge ED (Routine); Ordered 01/02/22 Ordered By: Jensen Henderson Discharge Diet: Clear Liquid Discharge Activity: Increase activity as tolerated Patient Instructions: Pancreatitis (ED), Abdominal Pain (ED), Hematemesis (ED), Opioid Safety Activity Restrictions/Additional Instructions: Thank you for visiting the emergency department. You were seen and evaluated for abdominal pain and throwing up blood. The exact cause of your symptoms unclear. You do perhaps mild pancreatitis and this is likely exacerbation of your underlying peptic ulcer disease. Please follow-up with gastroenterology and your primary care provider. I will message case management for follow-up with GI. You will be given a prescription for nausea medication and pain medication. I recommend clear liquids for the next 2 days followed by slow introduction of nonfatty foods. Return to the emergency department for uncontrolled pain, inability tolerate p.o. intake, lightheadedness, dizziness, recurrent episodes of blood in vomit, or anything else that you are concerned about a feel needs emergency department evaluation. Sign Out Sign Out Data: Patient Sign Out occurred on 01/01/22 at 18:04. Patient's care was discussed, and care was transferred from to Jensen Henderson MD. Coding Level of Care Code ED Quote Clerk for [place] Fwd Exam Comprehensive
[2022-01-01 18:26] LABS: Blood Urea Nitrogen 17 mg/dL (6-20); Carbon Dioxide 29 mmol/L (22-29); Chloride 97 mmol/L (98-107); Glomerular Filtration Rate 92.6 mL/min (90-130); Glucose 89 mg/dL (65-115); Osmolality Calculated 287 mOsm/kg (285-295); Sodium 138 mmol/L (136-145)
[2022-01-01 18:30] LABS: Anion Gap 15.9 (5-19); Potassium 3.9 mmol/L (3.5-5.1)
[2022-01-01] MEDS: lactated ringers 1,000 ML 999 ML IV ×2 (18:38→22:25)
[2022-01-01] MEDS: morphine 4 mg/mL SDV 1 mL IVP (18:38)
[2022-01-01] MEDS: ondansetron 2 mg/ML SDV 2 mL 4 MG IVP (18:40)
[2022-01-01] MEDS: pantoprazole 40 mg SDV 80 MG IVP (18:42)
--- NOTE | 2022-01-01 19:02 | PC.NURSE ---
Called lab, stated they will send someone to draw the blue top.
--- NOTE | 2022-01-01 19:21 | PC.NURSE ---
Patient requesting more pain medications, medications were given approximately 20 minutes ago.
[2022-01-01 19:52] LABS: INR 1.03 (0.8-1.2)
[2022-01-01 19:55] LABS: D Dimer <= 0.27 ug/mIFEU (0-0.59)
[2022-01-01] MEDS: HYDROmorphone 1 mg/mL INJ 1 mL 0.5 MG IVP ×2 (20:08→22:24)
[2022-01-01] MEDS: lidocaine 2% viscous 15 ML, aluminum-mag hydrox-simethicon 30 ML, sucralfate oral liq 1 GM PO (20:08)
[2022-01-01 21:11] LABS: Add Urine Microscopic? NO; Charge for UA Resulting for Rev
[2022-01-01 21:17] LABS: Bilirubin Urine Neg (Negative); Blood Urine Neg (Negative); Glucose Urine UA Norm (Normal); Ketones Urine Negative (Negative); Leukocyte Esterase Urine Negative (Negative); Nitrate Urine Negative (Negative); Protein Urine Neg (Negative); Sulfosalicylic Acid Urine Negative (Negative); Urine Appearance Clear (CLEAR); Urine Color Yellow (Yellow); Urobilinogen Urine Norm (Negative); pH Urine 8 (5-7)
[2022-01-01 21:20] LABS: Lipase 19 U/L (13-60)
[2022-01-01 22:27] LABS: Lactic Sepsis W/Reflex 0.7 mmol/L (0.5-2.2)
--- NOTE | 2022-01-01 22:50 | CTR_ITS ---
PROCEDURE INFORMATION: Exam: CT Chest With Contrast; Diagnostic Exam date and time: 01/01/2022 11:10 PM Age: 21 years old Clinical indication: Vomiting; Abdominal pain; Patient HX: Epigastric pain with hematemesis. History of peptic ulcers. ; Additional info: Severe epigastric and abd pain refractory to treatment TECHNIQUE: Imaging protocol: Diagnostic computed tomography of the chest with contrast. Radiation optimization: All CT scans at this facility use at least one of these dose optimization techniques: automated exposure control; mA and/or kV adjustment per patient size (includes targeted exams where dose is matched to clinical indication); or iterative reconstruction. Contrast material: OMNI 300; Contrast volume: 50 ml; Contrast route: INTRAVENOUS (IV); COMPARISON: CR (CHEST, ) 01/01/2022 5:57 PM RADIATION DOSE METRICS: Total DLP (mGy-cm): 1556.02 FINDINGS: Lungs: Unremarkable. No consolidation. No masses. Pleural spaces: Unremarkable. No pneumothorax. No pleural effusion. Heart: Unremarkable. No cardiomegaly. No pericardial effusion. Lymph nodes: Unremarkable. No enlarged lymph nodes. Vasculature: Unremarkable. No aortic aneurysm. Bones/joints: Unremarkable. No acute fracture. Soft tissues: Unremarkable. PROCEDURE INFORMATION: Exam: CT Abdomen And Pelvis With Contrast Exam date and time: 01/01/2022 11:10 PM Age: 21 years old Clinical indication: Vomiting; Abdominal pain; Patient HX: Epigastric pain with hematemesis. History of peptic ulcers. ; Additional info: Severe epigastric and abd pain refractory to treatment TECHNIQUE: Imaging protocol: Computed tomography of the abdomen and pelvis with contrast. Radiation optimization: All CT scans at this facility use at least one of these dose optimization techniques: automated exposure control; mA and/or kV adjustment per patient size (includes targeted exams where dose is matched to clinical indication); or iterative reconstruction. Contrast material: OMNI 300; Contrast volume: 50 ml; Contrast route: INTRAVENOUS (IV); COMPARISON: CT abdomen pelvis wo con [id number] 01/01/2022 6:22 PM RADIATION DOSE METRICS: Total DLP (mGy-cm): 1556.02 FINDINGS: Diaphragm: Small to moderate hiatal hernia. Liver: Normal. No mass. Gallbladder and bile ducts: Normal. No calcified stones. No ductal dilation. Pancreas: Very minimal edema may be present inferior to the pancreas, perhaps reflecting a mild pancreatitis in the appropriate clinical setting. Spleen: Normal. No splenomegaly. Adrenal glands: Normal. No mass. Kidneys and ureters: Normal. No hydronephrosis. Stomach and bowel: Unremarkable. No obstruction. No mucosal thickening. Appendix: No evidence of appendicitis. Intraperitoneal space: Unremarkable. No free air. No significant fluid collection. Vasculature: Unremarkable. No abdominal aortic aneurysm. Lymph nodes: Unremarkable. No enlarged lymph nodes. Urinary bladder: Unremarkable as visualized. Reproductive: Unremarkable as visualized. Bones/joints: Unremarkable. No acute fracture. Soft tissues: Unremarkable. CT/CT chest abd pel w con* IMPRESSION: No acute findings. IMPRESSION: 1. Very minimal edema may be present inferior to the pancreas, perhaps reflecting a mild pancreatitis in the appropriate clinical setting. 2. Small to moderate hiatal hernia.
[2022-01-01] MEDS: iohexol 300 mg/mL 100 mL Btl IV (23:09)
[2022-01-01] MEDS: HYDROmorphone 1 mg/mL INJ 1 mL IVP (23:59)
[2022-01-02] VITALS: BP 125/78; PULSE 66; RESP 18; O2SAT 96
[2022-01-02] MEDS: ondansetron 2 mg/ML SDV 2 mL 4 MG IVP (00:55)
[2022-01-02 01:00] VITALS: BP 105/87; PULSE 72; RESP 18; O2SAT 96
[2022-01-02 01:29] VITALS: BP 133/94; PULSE 83; RESP 18; O2SAT 97
--- NOTE | 2022-01-02 14:00 | DCPLANNER ---
Addendum entered by Jaymie Sánchez 01/10/22 16:16: Patient had a follow up appointment scheduled for 01.03.22 at [facility] - patient did not attend appointment. Original Note: manager machine had message to schedule a follow up appointment for patient with Dr. Conrad. manager machine sent patients information to the front office staff at internal medicine. Patients information will be printed and reviewed. Clinic will call patient with appointment information.
== END 2022-01-02 01:29 | disposition home or self-care (01) ==
PROVIDERS: Emergency Medicine; Emergency Provider Emergency Medicine
DX: K85.90 Acute pancreatitis without necrosis or infection, unspecified (principal); E86.0 Dehydration; K92.0 Hematemesis
CPT/HCPCS: 71045; 71260; 74176; 74177; 80048; 81003; 83605; 83690; 85025; 85378; 85610; 93005; 96361; 96374; 96375; 96376; 99285; C9113; J1170; J2270; J2405; Q9967

== ENCOUNTER 2023-02-22 13:11 | Emergency (ER) | payer OTHER, SELFPAY ==
[2023-02-22 13:13] VITALS: BP 134/83; PULSE 83; RESP 15; TEMP 36.7; O2SAT 99; BMI 28.5
[2023-02-22 13:54] VITALS: BP 125/86; PULSE 89; RESP 18; O2SAT 99
--- NOTE | 2023-02-22 14:03 | W.ED.DENTAL ---
HPI - Dental/Oral General: Chief complaint: Dental/Oral Stated complaint: rt sinus pressure/gum/pain Time Seen by Provider: 02/22/23 13:38 History of Present Illness: Patient is a 22-year-old male comes to the ED with dental pain. Dental pain has been going on now for couple weeks. Pain is located in right upper molars. Within the last 24 hours the pain got worse and he started noticing some swelling in the right right maxillary region and swelling of gums around right upper molars. He rates his pain currently an 8 out of 10. Denies any other symptoms. Patient has an appointment with a dentist scheduled in about 4 weeks. Associated symptoms: Denies fever(s) or odynophagia Review of Systems Const: Denies: fever(s), chills or fatigue Eyes: Denies: change in vision or eye discomfort ENMT: Reports: dental pain; Denies: throat pain, odynophagia, nasal discharge or nasal congestion Card: Denies: chest pain, palpitations, edema, swelling of feet/ankles, dyspnea on exertion or orthopnea Resp: Denies: dyspnea, productive cough or non-productive cough GI: Denies: abdominal pain, nausea, vomiting, diarrhea, constipation or hematochezia : Denies: flank pain, difficulty urinating, dysuria or hematuria Musc: Denies: neck pain, back pain or extremity swelling Skin/Breast: Denies: rash or new lesions Neuro: Denies: headache(s), numbness in extremities or weakness in extremities PFS ED PFSH: Medical History Peptic ulcer disease Surgical History No significant past surgical history Social History Smoking and tobacco status: never smoked Alcohol intake: never Substance/Drug Use: never Physical Exam Const: COMMON NORMALS: no acute distress, patient oriented x3, healthy appearing and alert GENERAL APPEARANCE: cooperative and comfortable HENMT: COMMON NORMALS: normocephalic HEAD & SCALP: normocephalic MOUTH: Normal oral and palatal mucosa present TEETH & GINGIVA: Yes abnormal tooth and associated gingiva upper right second molar tender and with associated gingival edema THROAT: posterior oropharynx normal and uvula midline Neck/C-Spine: COMMON NORMALS: supple GENERAL: Yes normal visual inspection Resp: COMMON NORMALS: normal respiratory effort, No retractions, No use of accessory muscles and clear to auscultation bilaterally AUSCULTATION: clear to auscultation bilaterally Cardio: COMMON NORMALS: regular rate, regular rhythm, S1 normal heart sound present, S2 normal heart sound present, No gallops present (Cardio), No clicks present (Cardio), No murmurs present (Cardio) and Peripheral pulses 2+ throughout RATE: regular rate RHYTHM: regular rhythm HEART SOUNDS: S1 normal heart sound present and S2 normal heart sound present PERIPHERAL PULSES: Peripheral pulses 2+ throughout GI: COMMON NORMALS: Normal to inspection, nondistended, normoactive bowel sounds present, Soft to palpation, non-tender and no masses PALPATION: Yes Soft to palpation : COMMON NORMALS: Yes no CVA tenderness BLADDER/KIDNEY EXAM: Yes no CVA tenderness Back/Pelvis: COMMON NORMALS: no CVA tenderness Extremity: COMMON NORMALS: normal to inspection Neuro: COMMON NORMALS: patient oriented x3 SENSORIUM/ORIENTATION: Yes alert GAIT: Yes Normal gait present Skin: GENERAL SKIN EXAM: dry skin Course Vital Signs: Vital signs: Vital Signs Temperature 98.0 F 02/22/23 13:13 Pulse Rate 88 02/22/23 14:23 Respiratory Rate 21 H 02/22/23 14:23 Blood Pressure 128/85 02/22/23 14:23 Pulse Oximetry 98 02/22/23 14:23 Oxygen Delivery Me thod Room Air 02/22/23 14:22 MDM - Dental/Oral Medical Decision Making Patient is a 22-year-old male comes to the ED with dental pain. Dental pain has been going on now for couple weeks. Pain is located in right upper molars. Within the last 24 hours the pain got worse and he started noticing some swelling in the right right maxillary region and swelling of gums around right upper molars. He rates his pain currently an 8 out of 10. Denies any other symptoms. Patient has an appointment with a dentist scheduled in about 4 weeks. Vitals are stable. Patient appears nontoxic in no acute distress or pain. He has some tenderness of right upper second molar with surrounding gingival erythema and edema. Rest of exam is benign. Patient was given a dose of pain med here in the ED. Patient was diagnosed with a dental infection and was stable for discharge home. He was sent home with a prescription for clindamycin, viscous lidocaine and ibuprofen 800 mg. Told to follow-up with his dentist at his scheduled appointment in the next coming weeks. Return to ED precautions given. Patient understood and agreed with plan. Discharge Plan Discharge Patient Disposition: Home Clinical Impression: Dental infection Condition: Stable Prescriptions: New clindamycin HCl 150 mg capsule 300 mg PO Q6H 7 Days Qty: 56 0RF Lidocaine Viscous 2 % solution 5 ml mucous membrane TID PRN (Reason: pain) Qty: 100 0RF ibuprofen 800 mg tablet 800 mg PO Q8H PRN (Reason: pain) Qty: 30 0RF No Action pantoprazole 40 mg tablet,delayed release (DR/EC) 40 mg PO BIDWMEAL 30 Days Qty: 60 0RF ondansetron 4 mg tablet,disintegrating 4 mg PO Q8H PRN (Reason: nausea and vomiting) Qty: 15 0RF oxycodone 5 mg tablet 5 mg PO Q4H PRN (Reason: pain) Qty: 14 0RF Discharge Orders: Discharge ED (Routine); Ordered 02/22/23 Ordered By: Antoni Loomis Referrals: Antoni Jenkins MD [Primary Care Provider] - Discharge Diet: Regular Discharge Activity: Resume usual activity Activity Restrictions/Additional Instructions: Follow-up with dentist at your scheduled appointment for further treatment of dental infection. Take medications as prescribed. Return to the ER or your medical provider if condition worsens. Please read and understand discharge instructions. Thank you for choosing [facility] for your healthcare needs today. Please realize this is an emergency room and that we are providing you with a medical screening exam and this may not be complete and all inclusive of all the testing and or work up that you may need to determine your ailment or severity of your illness. It is very important that you follow up as instructed or that you return to the Emergency Department should you have concerns or if your condition changes or worsens in any way. Coding Level of Care Code ED Content Specialist for Elaine Ramirez
[2023-02-22 14:07] VITALS: RESP 19; O2SAT 98
[2023-02-22] MEDS: oxyCODONE 5 mg IR Tab/Cap PO (14:07)
[2023-02-22 14:22] VITALS: BP 128/85; PULSE 88; RESP 21; O2SAT 98
[2023-02-22 14:23] VITALS: BP 128/85; PULSE 88; RESP 21; O2SAT 98
== END 2023-02-22 14:25 | disposition home or self-care (01) ==
PROVIDERS: Emergency Provider Physician Assistant; PCP Family Medicine
DX: K04.7 Periapical abscess without sinus (principal)
CPT/HCPCS: 99283

== ENCOUNTER 2024-05-27 11:37 | Emergency (ER) | payer OTHER, SELFPAY ==
[2024-05-27 12:12] VITALS: BP 131/96; PULSE 83; RESP 17; TEMP 36.7; O2SAT 97; BMI 29.7
--- NOTE | 2024-05-27 14:39 | CT_ITS ---
WS: [id number] CT THORACIC SPINE TECHNIQUE: Noncontrast CT of the thoracic spine with coronal and sagittal reformatted images. CLINICAL INFORMATION: trauma, distal numbness COMPARISON: None. DLP: 855.[address] scans at [facility] use at least one of these dose optimization techniques: automated e xposure control; mA and/or kV adjustment per patient size (includes targeted exams where dose is matc hed to clinical indication); or iterative reconstruction. FINDINGS: Mild thoracic curve. Mild thoracic kyphosis. No acute appearing compression fractures. Normal paraver tebral soft tissues. Moderate esophageal hiatal hernia. Adrenal glands are normal. Enlarged paraesophageal and prominent u pper abdominal lymph nodes likely reactive in a patient this age. Partially visualized patchy infiltr ates in the RIGHT middle lobe compatible with pneumonia. CT/CT thoracic spin wo con* [id number] IMPRESSION: 1. No acute thoracic spine findings. 2. Partially visualized patchy filtrates in the RIGHT middle lobe compatible w ith pneumonia. Consider aspiration pneumonia. 3. Moderate esophageal hiatal hernia with air-fluid level.
--- NOTE | 2024-05-27 14:39 | CT_ITS ---
WS: [id number] CT LUMBAR SPINE TECHNIQUE: Noncontrast CT of the lumbar spine with coronal and sagittal reformatted images. CLINICAL INFORMATION: trauma/distal numbness COMPARISON: None. DLP: 816.[address] scans at [facility] use at least one of these dose optimization techniques: automated e xposure control; mA and/or kV adjustment per patient size (includes targeted exams where dose is matc hed to clinical indication); or iterative reconstruction. FINDINGS: Mild lumbar curve. No acute compression. No high-grade central canal stenosis. L1-L2: Normal. L2-L3: Normal. L3-L4: Minimal annular bulging. Mild facet arthropathy. L4-L5: Mild annular bulging. Mild facet arthropathy. Spinal canal and foramen are patent. L5-S1: Tiny central disc protrusion. Spinal canal and foramen are patent. Mild facet arthropathy. Visualized pelvic bony structures: Normal. Paravertebral soft tissues: Normal. Adrenal glands are normal. CT/CT lumbar spine wo con* [id number] IMPRESSION: No acute lumbar spine findings.
--- NOTE | 2024-05-27 14:40 | ED_ITS ---
HPI - Back Pain/Injury General: Chief Complaint: Back Pain/Injury Stated Complaint: back injury, whole body hurts Time Seen by Provider: 05/27/24 13:19 Source: patient Mode of arrival: wheelchair Limitations: no limitations History of Present Illness: Patient is a 23-year-old male presenting to the emergency department due to mid and lower back pain onset at 0830 this morning. Patient works at a [employer], where he reports he bent over and a large wooden board toppled over and struck him directly on the low back. States that he has had severe pain since, and also is having numbness in both his legs. This is a Worker's Comp. situation. He is ambulatory into the emergency department, is placed in a wheelchair for comfort. Denies any previous history of injuries to the back. Primarily pain i s to the midline spinous process, not so much to the parathoracic or paralumbar muscles. He is denying any bowel or bladder incontinence, and though he has numbness to his extremities he has remained ambulatory. He has not taken anything for pain at this point. No other injuries noted with the incident, no chest pain, no shortness of breath, no other concerning symptoms. Of note, he notes that pain is worse with sitting that is standing at this time. MD elicited complaint: back pain and back injury Pertinent past history: recent trauma Onset (ago): hour(s) Timing: constant Severity: severe Similar Symptoms Previously: No Quality: sharp Location: lumbar spine and thoracic spine Exacerbating factors: sitting upright Context: trauma Associated symptoms: Deny abdominal pain, chills, fecal incontinence, fever(s), nausea or vomiting Related Data Previous Rx's Medication Instructions Recorded pantoprazole 40 mg tablet,delayed 40 mg PO BIDWMEAL 30 days #60 tabs 07/06/21 release ondansetron 4 mg disintegrating 4 mg PO Q8H PRN nausea and 01/02/22 tablet vomiting #15 tabs oxycodone 5 mg tablet 5 mg PO Q4H PRN pain #14 tabs 01/02/22 ibuprofen 800 mg tablet 800 mg PO Q8H PRN pain #30 tabs 02/22/23 lidocaine HCl 2 % mucosal solution 5 ml mucous membrane TID PRN pain 02/22/23 (Lidocaine Viscous) #100 mL azithromycin 500 mg tablet 500 mg PO DAILY 5 days #5 tabs 05/27/24 methocarbamol 750 mg tablet 750 mg PO Q8H 5 days #15 tabs 05/27/24 prednisone 20 mg tablet 60 mg (3 x 20 mg) PO ONCE 5 days 05/27/24 #15 tabs Allergies Allergy/AdvReac Type Severity Reaction Status Date / Time acetaminophen [From Tylenol] Allergy Unknown Verified 05/27/24 10:23 Review of Systems General: Reports: 10 or more systems reviewed and unremarkable except in HPI and below Const: Denies: fever(s) or chills Card: Denies: chest pain Resp: Denies: dyspnea or productive cough GI: Denies: abdominal pain, nausea, vomiting, diarrhea or fecal incontinence : Denies: flank pain or urinary incontinence Musc: Reports: back pain and limited range of motion; Denies: neck pain, extremity pain, extremity swelling, joint pain, joint swelling, joint redness, joint warmth or muscle weakness Skin/Breast: Denies: rash Neuro: Reports: numbness in extremities; Denies: headache(s) or weakness in extremities PFSH ED PFSH: Medical History Peptic ulcer disease Surgical History No significant past surgical history Social History Smoking and tobacco/nicotine status: never used tobacco/nicotine Alcohol intake: never Substance/Drug Use: never Physical Exam Const: COMMON NORMALS: no acute distress, patient oriented x3, no limitations, healthy appearing, alert and well nourished OTHER: Patient appears well in no acute distress, though upon movement he does wince in pain HENMT: COMMON NORMALS: normocephalic and atraumatic HEAD & SCALP: normocephalic and atraumatic Neck/C-Spine: COMMON NORMALS: full ROM, supple and no meningeal signs Resp: COMMON NORMALS: normal respiratory effort, No use of accessory muscles and clear to auscultation bilaterally AUSCULTATION: clear to auscultation bilaterally Cardio: COMMON NORMALS: regular rate and regular rhythm RATE: regular rate RHYTHM: regular rhythm Back/Pelvis: OTHER: Reproducible tenderness to light palpation of the thoracic and lumbar spine. No step-off deformity, there is an abrasion noted to the right parathoracic and paralumbar muscles indicating a recent trauma, however no bruising. He has pain with all range of motion, though does appear to be worse with flexion and extension at the low back. Limited range of motion with lateral rotation. Extremity: COMMON NORMALS: normal to inspection, full ROM, capillary refill normal, no joint enlargement and no clubbing, cyanosis or edema Neuro: COMMON NORMALS: patient oriented x3, moves all extremities, no focal motor deficits, no sensory deficits noted and deep tendon reflexes 2+ bilaterally SENSORIUM/ORIENTATION: Yes alert MENINGEAL SIGNS: Yes no meningeal signs Skin: COMMON NORMALS: no rashes or lesions noted GENERAL SKIN EXAM: no rashes or lesions noted Course Vital Signs: Vital signs: Vital Signs Temperature 98.1 F 05/27/24 12:12 Pulse Rate 78 05/27/24 15:04 Respiratory Rate 16 05/27/24 15:04 Blood Pressure 132/78 05/27/24 15:04 Pulse Oximetry 95 05/27/24 15:04 Oxygen Delivery Me thod Room Air 05/27/24 15:04 MDM - Back Pain/Injury Medical Decision Making Patient had injury at work where a large piece of wood struck him in the back, this was Worker's Comp. situation in which she is handling this and paperwork filled out appropriately. Due to the numbness in his lower extremities I did CT his thoracic and lumbar back which were both normal. Incidentally thoracic spine CT did show right lower lobe consolidation concerning for a pneumonia. Patient had no complaints of respiratory distress, fevers, and states he did not feel sick although he does avidly use a vape and also has a child who has been sick recently. A chest x-ray obtained did confirm this that there was right middle lobe pneumonia of undetermined etiology, potentially an aspiration. Again patient clarifies that he does not feel any different, however will treat with azithromycin and prednisone empirically and encouraged to follow-up with his primary care provider if his condition worsens. He also notes his pain is improving after he did receive Toradol and Norflex here in the emergency department, will prescribe him muscle relaxers to take at home. Also was given a work note for tomorrow and encouraged to treat conservatively. Reasons to return discussed. Labs Radiology Impressions Lumbar Spine CT 05/27/24 14:39 IMPRESSION: No acute lumbar spine findings. Thoracic Spine CT 05/27/24 14:39 IMPRESSION: 1. No acute thoracic spine findings. 2. Partially visualized patchy filtrates in the RIGHT middle lobe compatible with pneumonia. Consider aspiration pneumonia. 3. Moderate esophageal hiatal hernia with air-fluid level. Chest X-Ray 05/27/24 15:35 IMPRESSION: Ill-defined opacities in the mid to lower right lung field consistent with pneumonia. All radiology interpretation(s) finalized by discharge Discharge Plan Discharge Patient Disposition: Home Clinical Impression: Contusion of lower back Qualifiers: Encounter type: initial encounter Qualified Code(s): S30.0XXA - Contusion of lower back and pelvis, initial encounter Pneumonia Qualifiers: Pneumonia type: due to unspecified organism Laterality: right Lung location: middle lobe of lung Qualified Code(s): J18.9 - Pneumonia, unspecified organism Condition: Stable Prescriptions: New methocarbamol 750 mg tablet 750 mg PO Q8H 5 Days Qty: 15 0RF prednisone 20 mg tablet 60 mg PO ONCE 5 Days Qty: 15 0RF azithromycin 500 mg tablet 500 mg PO DAILY 5 Days Qty: 5 0RF No Action pantoprazole 40 mg tablet,delayed release (DR/EC) 40 mg PO BIDWMEAL 30 Days Qty: 60 0RF ondansetron 4 mg tablet,disintegrating 4 mg PO Q8H PRN (Reason: nausea and vomiting) Qty: 15 0RF oxycodone 5 mg tablet 5 mg PO Q4H PRN (Reason: pain) Qty: 14 0RF Lidocaine Viscous 2 % solution 5 ml mucous membrane TID PRN (Reason: pain) Qty: 100 0RF ibuprofen 800 mg tablet 800 mg PO Q8H PRN (Reason: pain) Qty: 30 0RF Discharge Orders: Discharge ED (Routine); Ordered 05/27/24 Ordered By: Sourav Chávez Referrals: Antoni Jenkins MD [Primary Care Provider] - Discharge Diet: Usual diet Discharge Activity: Increase activity as tolerated Patient Instructions: Pain Management Activity Restrictions/Additional Instructions: Take ibuprofen and muscle relaxers. Ice and heat to the low back. Gentle range of motion exercises as tolerated. Rest and recovery, work note provided. Return with any new or concerning symptoms. Prednisone and azithromycin as prescribed. Stand Alone Forms: Work/School Release Coding Level of Care Code ED Aerial Crop Duster for Elaine Ramirez
[2024-05-27] MEDS: orphenadrine 30 mg/mL Inj 2 mL 60 MG IM (14:59)
[2024-05-27] MEDS: ketorolac 60 mg/2 mL INJ IM (14:59)
[2024-05-27 15:04] VITALS: BP 132/78; PULSE 78; RESP 16; O2SAT 95
--- NOTE | 2024-05-27 15:35 | XRR_ITS ---
PROCEDURE INFORMATION: Exam: XR Chest Exam date and time: 05/27/2024 4:25 PM Age: 23 years old Clinical indication: Shortness of breath; Additional info: CT findings of potential pna TECHNIQUE: Imaging protocol: Radiologic exam of the chest. Views: 1 view. COMPARISON: CT chest abdpel w/*[id number] 01/01/2022 11:10 PM FINDINGS: Lungs: There are ill-defined opacities in the mid to lower right lung field. Pleural spaces: Unremarkable. No pleural effusion. No pneumothorax. Heart/Mediastinum: Unremarkable. No cardiomegaly. Bones/joints: Unremarkable. XR/XR chest 1V portable [id number] IMPRESSION: Ill-defined opacities in the mid to lower right lung field consistent with pneumonia.
[2024-05-27 18:03] VITALS: BP 120/81; PULSE 63; RESP 16; O2SAT 99
== END 2024-05-27 18:04 | disposition home or self-care (01) ==
PROVIDERS: Emergency Provider Physician Assistant; PCP Family Medicine
DX: S30.0XXA Contusion of lower back and pelvis, initial encounter (principal); J18.9 Pneumonia, unspecified organism; W20.8XXA Other cause of strike by thrown, projected or falling object, initial encounter; Y99.0 Civilian activity done for income or pay
CPT/HCPCS: 71045; 72128; 72131; 96372; 99284; J1885; J2360